=== PATIENT | male | born 1945 | race African-American/Black ===

== ENCOUNTER 2019-11-05 00:20 | Inpatient (IN) | payer OTHER ==
[~2019-11-05] VITALS: Ht 185.4 cm; Wt 74.0 kg
[2019-11-05] MEDS ORDERED: METHYLPREDNISOLONE SOD SUCC 125 MG/2 ML VIAL IV NR (01:02)
[2019-11-05] MEDS ORDERED: IPRATROPIUM BROMIDE (0.02%) 0.5MG/2.5ML NEB HHN NR (01:02)
[2019-11-05] MEDS: ALBUTEROL (0.083%) 2.5MG/3ML NEB HHN SCH ×2 (01:37→02:57)
[2019-11-05 01:42] LABS: CHLORIDE 105 mEq/L (98-107)
[2019-11-05] MEDS ORDERED: CEFTRIAXONE 1 G PREMIX 50 ML IV NR (02:30)
[2019-11-05] MEDS ORDERED: AZITHROMYCIN 500 MG in DEXT 5% WATER 250 ML IV NR (02:30)
[2019-11-05 02:44] LABS: HEMATOCRIT. 26.1 % (42.0-52.0); HEMOGLOBIN. 8.3 g/dL (14.0-18.0); LYMPHOCYTES % 13.4 % (20.0-50.0); MEAN CORPUSCULAR HEMOGLOBIN 21.8 pg (28.0-32.0); MEAN PLATELET VOLUME 10.2 fl (7.4-10.4); MONOCYTES % 7.2 % (2.0-8.0); NEUTROPHILS % 78.4 % (40.0-76.0); PLATELET 146 x1000/uL (130-400); RED BLOOD CELL COUNT 3.78 mill/uL (4.7-6.1)
[2019-11-05 02:45] LABS: BASOPHILS % 0.6 % (0.0-2.0); EOSINOPHILS % 0.4 % (0.0-5.0)
[2019-11-05 02:46] LABS: PLATELET ESTIMATE NORMAL
[2019-11-05 04:45] LABS: BG BASE EXCESS -2.7 mmol/L (-2.0-2.0); BG CARBOXYHEMOGLOBIN 1.5 % (0.5-1.5); BG DEOXYHEMOGLOBIN 23.7 % (0.0-5.0); BG FRACTION INSPIRED OXYGEN 32; BG HCO3 ACT 20.8 mmol/L (22.0-26.0); BG METHEMOGLOBIN 0.6 % (0.0-1.5); BG OXYGEN SATURATION 75.8 % (92.0-98.5); BG OXYHEMOGLOBIN 74.2 % (94.0-97.0); BG PCO2 31.4 mmHg (35.0-45.0); BG PO2 42.3 mmHg (75.0-100.0); BG TOTAL HEMOGLOBIN 9.4 g/dL (12.0-18.0)
[2019-11-05 08:10] VITALS: BP 108/51
[2019-11-05] MEDS ORDERED: ACETAMINOPHEN 325MG TABLET PO PRN (09:00)
[2019-11-05] MEDS ORDERED: DOCUSATE SODIUM 100MG CAPSULE PO PRN (09:00)
[2019-11-05] MEDS: CARVEDILOL 3.125 MG TABLET PO SCH ×2 (09:00→20:46)
[2019-11-05] MEDS ORDERED: IPRATROPIUM/ALBUTEROL 0.5-3(2.5)MG/3ML NEB HHN PRN (09:00)
[2019-11-05] MEDS: FAMOTIDINE 20MG TABLET PO SCH (09:51)
[2019-11-05] MEDS: POTASSIUM CHLORIDE 20MEQ/PACKET PO SCH (09:51)
[2019-11-05] MEDS ORDERED: ENOXAPARIN 40MG/0.4ML SYR SUBCUT SCH (10:00)
[2019-11-05] MEDS ORDERED: RIOC2.5T PO (10:51)
[2019-11-05] MEDS ORDERED: FURO-152 PO (10:59)
[2019-11-05] MEDS ORDERED: LIP40 PO (10:59)
[2019-11-05] MEDS ORDERED: LEVO112T2 PO (10:59)
[2019-11-05] MEDS ORDERED: FERR325T6 PO (10:59)
[2019-11-05] MEDS ORDERED: OMEP20CA14 PO (10:59)
[2019-11-05] MEDS ORDERED: ASCO500C18 PO (10:59)
[2019-11-05] MEDS ORDERED: CYAN100T45 PO (10:59)
[2019-11-05] MEDS ORDERED: ALLO100T57 PO (10:59)
[2019-11-05] MEDS ORDERED: DILT60TA35 PO (10:59)
[2019-11-05] MEDS ORDERED: CHOL200077 PO (10:59)
[2019-11-05] MEDS ORDERED: DIGO0.12 PO (10:59)
[2019-11-05] MEDS ORDERED: POLY17PO3 PO (10:59)
[2019-11-05] MEDS ORDERED: APIX2.5T PO (10:59)
[2019-11-05 12:00] VITALS: BP 111/79
[2019-11-05] MEDS ORDERED: IPRATROPIUM/ALBUTEROL 0.5-3(2.5)MG/3ML NEB HHN SCH (12:00)
[2019-11-05] MEDS ORDERED: FUROSEMIDE 40MG/4ML VIAL IVP NR (12:00)
[2019-11-05] MEDS: ALBUTEROL 6.7GM HFA INHALER ORI PRN (12:45)
[2019-11-05 12:52] LABS: BG BASE EXCESS -3.5 mmol/L (-2.0-2.0); BG CARBOXYHEMOGLOBIN 1.3 % (0.5-1.5); BG DEOXYHEMOGLOBIN 14.2 % (0.0-5.0); BG FRACTION INSPIRED OXYGEN 60; BG HCO3 ACT 20.6 mmol/L (22.0-26.0); BG METHEMOGLOBIN 0.4 % (0.0-1.5); BG OXYGEN SATURATION 85.6 % (92.0-98.5); BG OXYHEMOGLOBIN 84.1 % (94.0-97.0); BG PCO2 33.1 mmHg (35.0-45.0); BG PH 7.411 (7.350-7.450); BG PO2 53.2 mmHg (75.0-100.0); BG SAMPLE SITE RIGHT BRACHIAL; BG TOTAL HEMOGLOBIN 9.8 g/dL (12.0-18.0); BG VENT MODE MASK - SIMPLE
[2019-11-05] MEDS: DEXAMETHASONE 4MG/ML 1ML VIAL IV SCH ×2 (12:55→17:59)
[2019-11-05] MEDS: SODIUM CHLORIDE 0.9% INJ 3ML FLUSH IVF SCH ×2 (14:31→20:46)
[2019-11-05] MEDS ORDERED: CEFTRIAXONE 1 G PREMIX 50 ML IV SCH (15:15)
[2019-11-05 16:00] VITALS: BP 126/60
[2019-11-05 16:56] LABS: CLARITY URINE CLEAR (CLEAR); COLOR URINE YELLOW (YELLOW); KETONES URINE NEGATIVE (NEGATIVE); LEUKOCYTE ESTERASE URINE NEGATIVE (NEGATIVE); NITRITE URINE NEGATIVE (NEGATIVE); OCCULT BLOOD URINE NEGATIVE (NEGATIVE); PROTEIN URINE TRACE (NEGATIVE); SPECIFIC GRAVITY URINE 1.011 (1.005-1.030)
[2019-11-05] MEDS: APIXABAN 5 MG TABLET PO SCH (17:59)
[2019-11-05] MEDS: FUROSEMIDE 40MG/4ML VIAL IVP SCH (17:59)
[2019-11-05 20:24] VITALS: BP 114/50
[2019-11-05 20:49] LABS: HEMATOCRIT. 29.6 % (42.0-52.0); HEMOGLOBIN. 9.2 g/dL (14.0-18.0); MEAN CORPUSCULAR HEMOGLOBIN 21.7 pg (28.0-32.0); MEAN CORPUSCULAR VOLUME 69.5 fL (80.0-94.0); MEAN PLATELET VOLUME 10.8 fl (7.4-10.4); PLATELET 163 x1000/uL (130-400); RED BLOOD CELL COUNT 4.26 mill/uL (4.7-6.1); RED CELL DISTRIBUTION WIDTH 21.1 % (11.6-14.6)
[2019-11-05 20:57] LABS: CHLORIDE 103 mEq/L (98-107)
[2019-11-05 21:05] LABS: HDL CHOLESTEROL 31 mg/dL (40-59)
[2019-11-05 21:16] LABS: LDL CHOLESTEROL 25 mg/dL (5-100)
[2019-11-05 21:39] LABS: PLATELET ESTIMATE NORMAL
[2019-11-06] VITALS: BP 136/55
[2019-11-06] MEDS: CEFTRIAXONE 1,000 MG in DEXTROSE 5% WATER 50 ML IV SCH (00:46)
[2019-11-06] MEDS: DEXAMETHASONE 4MG/ML 1ML VIAL IV SCH ×4 (00:47→18:06)
[2019-11-06] MEDS: AZITHROMYCIN 500 MG in DEXT 5% WATER 250 ML IV SCH (02:25)
[2019-11-06 04:30] VITALS: BP 109/56
[2019-11-06] MEDS: ALBUTEROL 6.7GM HFA INHALER ORI PRN (04:32)
[2019-11-06] MEDS: FUROSEMIDE 40MG/4ML VIAL IVP SCH ×3 (05:47→18:08)
[2019-11-06] MEDS: SODIUM CHLORIDE 0.9% INJ 3ML FLUSH IVF SCH ×3 (05:48→21:50)
[2019-11-06 08:00] VITALS: BP 119/65
[2019-11-06] MEDS: POTASSIUM CHLORIDE 20MEQ/PACKET PO SCH (08:58)
[2019-11-06] MEDS: FAMOTIDINE 20MG TABLET PO SCH (08:58)
[2019-11-06] MEDS: APIXABAN 5 MG TABLET PO SCH ×2 (08:58→18:05)
[2019-11-06] MEDS: CARVEDILOL 3.125 MG TABLET PO SCH ×2 (08:59→20:31)
[2019-11-06 09:12] LABS: HEMATOCRIT. 29.3 % (42.0-52.0); HEMOGLOBIN. 8.9 g/dL (14.0-18.0); MEAN CORPUSCULAR HEMOGLOBIN 21.5 pg (28.0-32.0); MEAN CORPUSCULAR VOLUME 70.2 fL (80.0-94.0); RED BLOOD CELL COUNT 4.17 mill/uL (4.7-6.1); RED CELL DISTRIBUTION WIDTH 21.6 % (11.6-14.6)
[2019-11-06 09:21] LABS: CHLORIDE 103 mEq/L (98-107)
[2019-11-06 10:19] LABS: BG BASE EXCESS -1.5 mmol/L (-2.0-2.0); BG CARBOXYHEMOGLOBIN 0.8 % (0.5-1.5); BG DEOXYHEMOGLOBIN 3.5 % (0.0-5.0); BG FRACTION INSPIRED OXYGEN 44; BG HCO3 ACT 22.1 mmol/L (22.0-26.0); BG METHEMOGLOBIN 0.3 % (0.0-1.5); BG OXYGEN SATURATION 96.5 % (92.0-98.5); BG OXYHEMOGLOBIN 95.4 % (94.0-97.0); BG PCO2 33.5 mmHg (35.0-45.0); BG PH 7.438 (7.350-7.450); BG PO2 84.7 mmHg (75.0-100.0); BG SAMPLE SITE LEFT BRACHIAL; BG TOTAL HEMOGLOBIN 10.4 g/dL (12.0-18.0); BG VENT MODE NASAL CANNULA
[2019-11-06 12:00] VITALS: BP 131/63
[2019-11-06 12:48] LABS: PLATELET ESTIMATE NORMAL
[2019-11-06 12:51] LABS: MEAN PLATELET VOLUME 10.2 fl (7.4-10.4); PLATELET 165 x1000/uL (130-400)
[2019-11-06 16:00] VITALS: BP 134/68
[2019-11-06 20:00] VITALS: BP 125/81
[2019-11-07] VITALS: BP 122/66
[2019-11-07] MEDS: DEXAMETHASONE 4MG/ML 1ML VIAL IV SCH ×2 (01:14→06:11)
[2019-11-07] MEDS: CEFTRIAXONE 1,000 MG in DEXTROSE 5% WATER 50 ML IV SCH (01:15)
[2019-11-07] MEDS: AZITHROMYCIN 500 MG in DEXT 5% WATER 250 ML IV SCH (02:29)
[2019-11-07 04:00] VITALS: BP 105/56
[2019-11-07] MEDS: FUROSEMIDE 40MG/4ML VIAL IVP SCH ×2 (06:11→18:30)
[2019-11-07] MEDS: SODIUM CHLORIDE 0.9% INJ 3ML FLUSH IVF SCH ×3 (06:12→21:29)
[2019-11-07 06:45] LABS: HEMATOCRIT. 28.2 % (42.0-52.0); HEMOGLOBIN. 8.9 g/dL (14.0-18.0); MEAN CORPUSCULAR HEMOGLOBIN 21.8 pg (28.0-32.0); MEAN CORPUSCULAR VOLUME 69.3 fL (80.0-94.0); MEAN PLATELET VOLUME 9.7 fl (7.4-10.4); PLATELET 142 x1000/uL (130-400); RED BLOOD CELL COUNT 4.06 mill/uL (4.7-6.1); RED CELL DISTRIBUTION WIDTH 21.7 % (11.6-14.6)
[2019-11-07 06:55] LABS: CHLORIDE 103 mEq/L (98-107)
[2019-11-07 08:00] VITALS: BP 116/68
[2019-11-07] MEDS: APIXABAN 5 MG TABLET PO SCH ×2 (08:24→18:29)
[2019-11-07] MEDS: CARVEDILOL 3.125 MG TABLET PO SCH (08:24)
[2019-11-07] MEDS: FAMOTIDINE 20MG TABLET PO SCH (08:24)
[2019-11-07] MEDS: POTASSIUM CHLORIDE 20MEQ/PACKET PO SCH (08:24)
[2019-11-07] MEDS: ASPIRIN 81MG TABLET PO SCH (10:30)
[2019-11-07] MEDS: METHYLPREDNISOLONE SOD SUCC 40 MG/ML VIAL IV SCH ×2 (11:53→18:30)
[2019-11-07 12:00] VITALS: BP 111/51
[2019-11-07 12:28] LABS: PLATELET ESTIMATE NORMAL
[2019-11-07 14:47] LABS: TOTAL IRON BINDING CAPACITY 287 ug/dL (250-450)
[2019-11-07 15:14] LABS: FERRITIN 696 ng/mL (22-322)
[2019-11-07 15:22] LABS: VITAMIN B12 SERUM 1777 pg/mL (211-911)
[2019-11-07 16:00] VITALS: BP 125/69
[2019-11-07 20:00] VITALS: BP 102/65
[2019-11-07] MEDS: ATORVASTATIN CALCIUM 10MG TABLET PO SCH (21:28)
[2019-11-07] MEDS: AZITHROMYCIN 500 MG TABLET PO SCH (21:28)
[2019-11-08] MEDS: CEFTRIAXONE 1,000 MG in DEXTROSE 5% WATER 50 ML IV SCH (00:41)
[2019-11-08] MEDS: METHYLPREDNISOLONE SOD SUCC 40 MG/ML VIAL IV SCH ×3 (03:06→18:24)
[2019-11-08 04:00] VITALS: BP 109/57
[2019-11-08] MEDS: SODIUM CHLORIDE 0.9% INJ 3ML FLUSH IVF SCH ×3 (06:09→21:00)
[2019-11-08] MEDS: FUROSEMIDE 40MG/4ML VIAL IVP SCH ×2 (06:12→17:01)
[2019-11-08 07:03] LABS: HEMATOCRIT. 27.5 % (42.0-52.0); HEMOGLOBIN. 8.7 g/dL (14.0-18.0); MEAN CORPUSCULAR HEMOGLOBIN 21.7 pg (28.0-32.0); MEAN CORPUSCULAR VOLUME 68.4 fL (80.0-94.0); RED BLOOD CELL COUNT 4.02 mill/uL (4.7-6.1); RED CELL DISTRIBUTION WIDTH 20.8 % (11.6-14.6)
[2019-11-08 07:34] LABS: CHLORIDE 100 mEq/L (98-107)
[2019-11-08 08:00] VITALS: BP 104/59
[2019-11-08] MEDS: FAMOTIDINE 20MG TABLET PO SCH (08:55)
[2019-11-08] MEDS: POTASSIUM CHLORIDE 20MEQ/PACKET PO SCH (08:55)
[2019-11-08] MEDS: APIXABAN 5 MG TABLET PO SCH ×2 (08:55→17:01)
[2019-11-08] MEDS: ASPIRIN 81MG TABLET PO SCH (08:55)
[2019-11-08] MEDS: AMLODIPINE 2.5MG TABLET PO SCH (08:56)
[2019-11-08 10:25] LABS: PLATELET 166 x1000/uL (130-400); PLATELET ESTIMATE NORMAL
[2019-11-08 10:26] LABS: MEAN PLATELET VOLUME 11.3 fl (7.4-10.4)
[2019-11-08 12:00] VITALS: BP 97/66
[2019-11-08 16:00] VITALS: BP 127/70
[2019-11-08 20:00] VITALS: BP 135/80
[2019-11-08] MEDS: ATORVASTATIN CALCIUM 10MG TABLET PO SCH (20:54)
[2019-11-08] MEDS: AZITHROMYCIN 500 MG TABLET PO SCH (20:54)
[2019-11-09] VITALS: BP 134/70
[2019-11-09] MEDS: METHYLPREDNISOLONE SOD SUCC 40 MG/ML VIAL IV SCH ×2 (02:59→12:06)
[2019-11-09 04:00] VITALS: BP 113/68
[2019-11-09] MEDS: FUROSEMIDE 40MG/4ML VIAL IVP SCH (05:51)
[2019-11-09] MEDS: SODIUM CHLORIDE 0.9% INJ 3ML FLUSH IVF SCH ×2 (05:52→14:52)
[2019-11-09 08:00] VITALS: BP 112/50
[2019-11-09] MEDS: AMLODIPINE 2.5MG TABLET PO SCH (09:43)
[2019-11-09] MEDS: POTASSIUM CHLORIDE 20MEQ/PACKET PO SCH (09:43)
[2019-11-09] MEDS: FAMOTIDINE 20MG TABLET PO SCH (09:43)
[2019-11-09] MEDS: ASPIRIN 81MG TABLET PO SCH (09:43)
[2019-11-09] MEDS: APIXABAN 5 MG TABLET PO SCH (09:43)
[2019-11-09 10:01] LABS: HEMATOCRIT. 32.1 % (42.0-52.0); HEMOGLOBIN. 9.8 g/dL (14.0-18.0); MEAN CORPUSCULAR HEMOGLOBIN 21.2 pg (28.0-32.0); MEAN CORPUSCULAR VOLUME 69.1 fL (80.0-94.0); RED BLOOD CELL COUNT 4.64 mill/uL (4.7-6.1); RED CELL DISTRIBUTION WIDTH 21.6 % (11.6-14.6)
[2019-11-09 10:03] LABS: CHLORIDE 97 mEq/L (98-107)
[2019-11-09 12:00] VITALS: BP 118/54
[2019-11-09 12:45] LABS: PLATELET ESTIMATE NORMAL
[2019-11-09 12:46] LABS: PLATELET 192 x1000/uL (130-400)
[2019-11-09 14:28] VITALS: BP 118/54
== END 2019-11-09 16:40 | disposition home or self-care (01) | DRG 291 ==
LOC: ER 00:52 → 7WST 03:00 → ENRESERV 07:23 → 5WST 11-06 12:36
PROVIDERS: ADMIT Ophthalmology; ATTEND Ophthalmology
DX: I11.0 Hypertensive heart disease with heart failure (principal); J18.9 Pneumonia, unspecified organism; J96.01 Acute respiratory failure with hypoxia; J44.1 Chronic obstructive pulmonary disease with (acute) exacerbation; J44.0 Chronic obstructive pulmonary disease with (acute) lower respiratory infection; R17 Unspecified jaundice; I48.20 Chronic atrial fibrillation, unspecified; D68.69 Other thrombophilia; I50.33 Acute on chronic diastolic (congestive) heart failure; I42.9 Cardiomyopathy, unspecified; Z20.828 Contact with and (suspected) exposure to other viral communicable diseases; E78.5 Hyperlipidemia, unspecified; D63.8 Anemia in other chronic diseases classified elsewhere; I08.1 Rheumatic disorders of both mitral and tricuspid valves; I25.10 Atherosclerotic heart disease of native coronary artery without angina pectoris; I27.20 Pulmonary hypertension, unspecified; I73.9 Peripheral vascular disease, unspecified; T38.0X5A Adverse effect of glucocorticoids and synthetic analogues, initial encounter; Z99.81 Dependence on supplemental oxygen; Z79.01 Long term (current) use of anticoagulants; Z79.890 Hormone replacement therapy; Z95.1 Presence of aortocoronary bypass graft; Z82.3 Family history of stroke; Z87.891 Personal history of nicotine dependence; Z95.3 Presence of xenogenic heart valve; Z88.5 Allergy status to narcotic agent; Z88.8 Allergy status to other drugs, medicaments and biological substances; Z79.899 Other long term (current) drug therapy
CPT/HCPCS: 36415; 36600; 71045; 71250; 76700; 80048; 80053; 80061; 81003; 82375; 82607; 82728; 82805; 82962; 83540; 83550; 83605; 83735; 83880; 84145; 84443; 84484; 85025; 85379; 87635; 93005; 93306; 93970; 94640; 99291; J0456; J0696; J1100; J1650; J1940; J2920; J2930; J7060